=== PATIENT | male | born 1995 | race Caucasian/White ===

== ENCOUNTER 2021-06-09 15:08 | Observation (INO) | payer OTHER ==
[2021-06-09] MEDS ORDERED: ACETAMINOPHEN 1000 MG/100 ML VIAL IVPB ONE (16:36)
[2021-06-09] MEDS ORDERED: morphine CARPU-JECT 4 MG/1 ML DISP.SYRIN IVPUSH ONE (17:46)
[2021-06-09] MEDS ORDERED: morphine SULFATE 4 MG/ML VIAL ONE (17:58)
[2021-06-09 22:17] LABS: BASO % 0.3 % (0-2.0); EOS % 0.1 % (0-4.5); HEMATOCRIT 39.8 % (35.4-49); HEMOGLOBIN 13.9 GM/dL (11.7-16.9); LYMPH % 8.7 % (8-40); MCH 32.6 pg (25.7-33.7); MEAN CELL VOLUME 93.3 fl (80-96); MEAN PLT VOLUME 9.3 fl (7.5-11.1); MONO % 7.7 % (3.8-10.2); NEUT % 83.2 % (42.8-82.8); PLATELET COUNT 237 10^3/uL (134-434); RBC 4.26 M/mm3 (4.00-5.60); RDW 12.7 % (11.9-15.9); WHITE BLOOD COUNT 11.4 K/mm3 (4.0-10.0)
[2021-06-09 22:37] LABS: BLOOD UREA NITROGEN 10.5 mg/dL (7-18); CALCIUM 8.9 mg/dL (8.5-10.1)
[2021-06-09 22:40] LABS: CREATININE 0.8 mg/dL (0.55-1.3)
[2021-06-10] MEDS ORDERED: ACETAMINOPHEN INJECTION 100 ML IVPB ONE (01:02)
[2021-06-10] MEDS: ACETAMINOPHEN 1000 MG/100 ML VIAL IVPB PRN ×2 (01:33→08:34)
[2021-06-10 06:47] LABS: HEMATOCRIT 38.4 % (35.4-49); HEMOGLOBIN 13.5 GM/dL (11.7-16.9); MCH 33.5 pg (25.7-33.7); MCHC 35.3 g/dl (32.0-35.9); MEAN CELL VOLUME 94.8 fl (80-96); MEAN PLT VOLUME 9.9 fl (7.5-11.1); PLATELET COUNT 230 10^3/uL (134-434); RBC 4.05 M/mm3 (4.00-5.60); RDW 12.8 % (11.9-15.9)
[2021-06-10 07:07] LABS: BLOOD UREA NITROGEN 9.9 mg/dL (7-18); CALCIUM 9.4 mg/dL (8.5-10.1); MAGNESIUM 1.8 mg/dL (1.8-2.4)
[2021-06-10 07:08] LABS: ALBUMIN 3.4 g/dl (3.4-5.0)
[2021-06-10 07:10] LABS: CREATININE 0.7 mg/dL (0.55-1.3); PHOSPHOROUS 3.9 mg/dL (2.5-4.9)
[2021-06-10 07:12] LABS: BILIRUBIN,TOTAL 0.4 mg/dL (0.2-1); TOT PROT 6.9 g/dl (6.4-8.2)
[2021-06-10] MEDS ORDERED: ENOXAPARIN NA (PORCINE) 40 MG/0.4 ML DISP.SYRIN SQ SCH (10:00)
[2021-06-10] MEDS ORDERED: traMADol HCL 50 MG TABLET PO PRN (12:54)
[2021-06-10] MEDS ORDERED: morphine SULFATE 4 MG/ML VIAL IVPUSH ONE (13:45)
[2021-06-10] MEDS ORDERED: DOCUSATE NA 100 MG/10 ML UNIT-DOSE CUPS PO PRN (18:35)
[2021-06-10] MEDS: diazePAM CARPU-JECT 10 MG/2 ML DISP.SYRIN IVPUSH PRN (18:50)
[2021-06-10] MEDS: DOCUSATE NA 100 MG/10 ML UNIT-DOSE CUPS PO SCH ×2 (19:00→21:08)
[2021-06-10 20:58] VITALS: BMI 22.6
[2021-06-11] MEDS ORDERED: PT OWN MED DRAWER 7, Y5N ONE (00:46)
[2021-06-11] MEDS: diazePAM CARPU-JECT 10 MG/2 ML DISP.SYRIN IVPUSH PRN ×2 (00:52→08:40)
[2021-06-11] MEDS: morphine SULFATE 4 MG/ML VIAL IVPUSH PRN ×2 (04:37→23:43)
[2021-06-11 09:07] LABS: BASO % 0.5 % (0-2.0); HEMATOCRIT 37.5 % (35.4-49); HEMOGLOBIN 13.2 GM/dL (11.7-16.9); LYMPH % 11.2 % (8-40); MCH 33.1 pg (25.7-33.7); MCHC 35.1 g/dl (32.0-35.9); MEAN CELL VOLUME 94.3 fl (80-96); MEAN PLT VOLUME 10.2 fl (7.5-11.1); MONO % 12.4 % (3.8-10.2); NEUT % 74.9 % (42.8-82.8); PLATELET COUNT 220 10^3/uL (134-434); RBC 3.98 M/mm3 (4.00-5.60); RDW 12.5 % (11.9-15.9); WHITE BLOOD COUNT 9.9 K/mm3 (4.0-10.0)
[2021-06-11 09:27] LABS: ALBUMIN 3.2 g/dl (3.4-5.0); CALCIUM 9.1 mg/dL (8.5-10.1)
[2021-06-11 09:28] LABS: BLOOD UREA NITROGEN 12.4 mg/dL (7-18); MAGNESIUM 1.9 mg/dL (1.8-2.4)
[2021-06-11 09:30] LABS: CREATININE 0.7 mg/dL (0.55-1.3); PHOSPHOROUS 3.7 mg/dL (2.5-4.9)
[2021-06-11 09:31] LABS: BILIRUBIN,TOTAL 0.8 mg/dL (0.2-1)
[2021-06-11 09:32] LABS: TOT PROT 6.8 g/dl (6.4-8.2)
[2021-06-11] MEDS ORDERED: ASPIRIN 81 MG CHEWABLE TABLETS PO SCH (10:00)
[2021-06-11] MEDS ORDERED: ASPIRIN 325 MG TABLET PO SCH (10:00)
[2021-06-11] MEDS: MULTIVIT-MINERALS ORAL LIQUID PO SCH (10:12)
[2021-06-11] MEDS: DOCUSATE NA 100 MG/10 ML UNIT-DOSE CUPS PO SCH ×2 (10:12→22:09)
[2021-06-11] MEDS: POLYETHYLENE GLYCOL (HEALTHYLAX) 3350 17 GM PACKET PO SCH (13:01)
[2021-06-11] MEDS: ASPIRIN 81 MG CHEWABLE TABLETS PO SCH (22:09)
[2021-06-12] MEDS: diazePAM CARPU-JECT 10 MG/2 ML DISP.SYRIN IVPUSH PRN ×2 (02:03→13:15)
[2021-06-12 07:14] LABS: BASO % 0.9 % (0-2.0); EOS % 2.8 % (0-4.5); HEMATOCRIT 36.9 % (35.4-49); HEMOGLOBIN 12.9 GM/dL (11.7-16.9); LYMPH % 24.7 % (8-40); MCH 33.1 pg (25.7-33.7); MEAN CELL VOLUME 94.4 fl (80-96); MEAN PLT VOLUME 10.2 fl (7.5-11.1); MONO % 12.2 % (3.8-10.2); NEUT % 59.4 % (42.8-82.8); PLATELET COUNT 215 10^3/uL (134-434); RBC 3.91 M/mm3 (4.00-5.60); RDW 12.7 % (11.9-15.9); WHITE BLOOD COUNT 8.2 K/mm3 (4.0-10.0)
[2021-06-12 07:23] LABS: ALBUMIN 2.9 g/dl (3.4-5.0); BLOOD UREA NITROGEN 11.2 mg/dL (7-18)
[2021-06-12 07:26] LABS: CREATININE 0.7 mg/dL (0.55-1.3)
[2021-06-12 07:28] LABS: TOT PROT 6.5 g/dl (6.4-8.2)
[2021-06-12] MEDS: MULTIVIT-MINERALS ORAL LIQUID PO SCH (09:37)
[2021-06-12] MEDS: ASPIRIN 81 MG CHEWABLE TABLETS PO SCH ×2 (09:37→22:19)
[2021-06-12] MEDS: DOCUSATE NA 100 MG/10 ML UNIT-DOSE CUPS PO SCH ×2 (09:37→22:19)
[2021-06-12] MEDS: POLYETHYLENE GLYCOL (HEALTHYLAX) 3350 17 GM PACKET PO SCH (09:37)
[2021-06-12] MEDS: morphine SULFATE 4 MG/ML VIAL IVPUSH PRN (09:41)
[2021-06-13] MEDS: morphine SULFATE 4 MG/ML VIAL IVPUSH PRN (00:03)
[2021-06-13 01:32] VITALS: BP 126/79; PULSE 88; TEMP 98.5
== END 2021-06-13 00:30 | disposition short-term general hospital (02) ==
LOC: JER 15:08 → INTOOBSV 20:46 → JERBED 20:46 → J6S 06-10 06:47
PROVIDERS: ADMIT Internal Medicine; ATTEND Nurse Practitioner Acute Care
PROC: 3E033NZ Introduction of Analgesics, Hypnotics, Sedatives into Peripheral Vein, Percutaneous Approach (ICD-10-PCS; principal; 2021-06-09)
DX: M25.551 Pain in right hip (principal); Z98.890 Other specified postprocedural states; Z29.9 Encounter for prophylactic measures, unspecified; R07.9 Chest pain, unspecified; W18.39XA Other fall on same level, initial encounter; Y93.89 Activity, other specified; Y92.009 Unspecified place in unspecified non-institutional (private) residence as the place of occurrence of the external cause; G80.9 Cerebral palsy, unspecified; S09.90XA Unspecified injury of head, initial encounter; Z86.69 Personal history of other diseases of the nervous system and sense organs; G89.18 Other acute postprocedural pain
CPT/HCPCS: 36415; 70450-TC; 71045-TC-FY; 72170-TC-FY; 73552-TC-RT-FY; 73590-TC-RT-FY; 73700-TC-RT; 80048; 80053; 83735; 84100; 85025; 85027; 93005; 93010; 94010; 96374; 96375; 96376; 97116-GP; 97163-GP; 99285-25; C9803; G0378; J0131; U0003; U0005